=== PATIENT | female | born 1980 | race Caucasian/White ===

== ENCOUNTER 2017-04-03 09:40 | Inpatient (IN) | payer OTHER, MEDICAID ==
[2017-04-03] VITALS (7 sets, daily range): BP systolic 129–140; BP diastolic 70–87; PULSE 80–94; RESP 18; TEMP 97.6–98; O2SAT 99–100
[~2017-04-03] VITALS: Ht 152.4 cm; Wt 74.0 kg
[2017-04-03] MEDS ORDERED: IOHEXOL 350 MG/ML 10 ML VIAL (for RAD DIAG) IVCONTRAST ONE (09:41)
[2017-04-03] MEDS ORDERED: ceFAZolin 2 GM PREMIX 50 ML ONE (09:43)
[2017-04-03] MEDS ORDERED: DIPHTH/TETANUS/ACEL PERTUSSIS (BOOSTER) 0.5 ML VIAL/PFS IM ONE (09:43)
[2017-04-03] MEDS ORDERED: MORPHINE SULFATE 8 MG/ML INJ ONE (09:45)
[2017-04-03] MEDS ORDERED: ONDANSETRON HCL 4 MG/2 ML VIAL ONE (09:45)
[2017-04-03] MEDS ORDERED: SODIUM CHLOR 0.9% 1000 ML INJ 1,000 ML IV SCH (10:00)
[2017-04-03] MEDS ORDERED: SODIUM CHLORIDE 0.9% FLUSH 10 ML FLUSH IV FLUSH PRN (10:00)
[2017-04-03] MEDS ORDERED: Post-op Orders (for Pharmacy) MISC XX ONE (10:00)
[2017-04-03] MEDS ORDERED: NALOXONE HCL 0.4 MG/ML AMP IV PRN (10:00)
[2017-04-03 10:07] LABS: AUTOMATED NEUTROPHIL # 13.7 TH/MM3 (1.8-7.7); BASOPHIL % 0.2 % (0.0-2.0); EOSINOPHIL # 0.4 TH/MM3 (0-0.4); EOSINOPHIL % 1.8 % (0.0-4.0); HEMATOCRIT 38.3 % (35.0-46.0); HEMO FLAGS DIFF FINAL; I-STAT POTASSIUM 3.7 MMOL/L (3.5-4.9); LYMPH % 22.1 % (9.0-44.0); LYMPHOCYTE # 4.3 TH/MM3 (1.0-4.8); MEAN CELL VOLUME 90.8 FL (80.0-100.0); MEAN CORPUSCULAR HEMOGLOBIN 30.1 PG (27.0-34.0); MEAN CORPUSCULAR HGB CONC 33.1 % (32.0-36.0); MONO % 5.9 % (0.0-8.0); PLATELET COUNT 350 TH/MM3 (150-450); RED BLOOD COUNT 4.22 MIL/MM3 (4.00-5.30); RED CELL DISTRIBUTION WIDTH 12.9 % (11.6-17.2); WHITE BLOOD COUNT 19.6 TH/MM3 (4.0-11.0)
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
[2017-04-03 10:11] LABS: APTT (PATIENT) 22.8 SEC (24.3-30.1); INTERNATIONAL NORMALIZED RATIO 0.9 RATIO
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
[2017-04-03] MEDS: MORPHINE SULFATE 4 MG/ML INJ IV PRN ×2 (10:40→19:31)
[2017-04-03] MEDS: ONDANSETRON HCL 4 MG/2 ML VIAL IV PRN (10:41)
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
[2017-04-03] MEDS: PANTOPRAZOLE SODIUM 40 MG VIAL IV SCH (12:00)
[2017-04-03] MEDS ORDERED: LIDOCAINE HCL 1% 50 ML VIAL INFIL ONE (13:15)
[2017-04-03] MEDS ORDERED: LIDOCAINE 2%/EPINEPHrine 1:100,000 50ML MDV ONE (15:03)
[2017-04-03] MEDS ORDERED: HYDROmorphone HCL PF 1 MG/ML VIAL IV PUSH ONE (15:45)
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
[2017-04-03] MEDS: DOCUSATE SODIUM 100 MG CAP PO SCH (19:30)
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
[2017-04-03] MEDS ORDERED: oxyCODONE/ACETAMINOPHEN 5 MG/325 MG TAB PO PRN (21:00)
[2017-04-03] MEDS: BACITRACIN TOP OINT 15 GM TUBE TOPICAL SCH (21:01)
[2017-04-03] MEDS: SODIUM CHLORIDE 0.9% FLUSH 10 ML FLUSH IV FLUSH SCH (21:02)
[2017-04-03] MEDS: HYDROmorphone HCL PF 1 MG/ML VIAL IV PRN (21:02)
[2017-04-04] VITALS (7 sets, daily range): BP systolic 109–140; BP diastolic 59–72; PULSE 80–98; RESP 16–18; TEMP 97.7–99.1; O2SAT 97–100
[2017-04-04] MEDS: HYDROmorphone HCL PF 1 MG/ML VIAL IV PRN ×7 (00:03→18:42)
[2017-04-04 06:00] LABS: AUTOMATED NEUTROPHIL # 12.2 TH/MM3 (1.8-7.7); BASOPHIL % 0.2 % (0.0-2.0); EOSINOPHIL # 0.1 TH/MM3 (0-0.4); EOSINOPHIL % 0.8 % (0.0-4.0); HEMATOCRIT 34.1 % (35.0-46.0); HEMO FLAGS DIFF FINAL; LYMPH % 11.9 % (9.0-44.0); LYMPHOCYTE # 1.9 TH/MM3 (1.0-4.8); MEAN CELL VOLUME 93.4 FL (80.0-100.0); MEAN CORPUSCULAR HEMOGLOBIN 29.9 PG (27.0-34.0); MONO % 9.8 % (0.0-8.0); NEUT % 77.3 % (16.0-70.0); PLATELET COUNT 261 TH/MM3 (150-450); RED BLOOD COUNT 3.64 MIL/MM3 (4.00-5.30); RED CELL DISTRIBUTION WIDTH 12.7 % (11.6-17.2); WHITE BLOOD COUNT 15.8 TH/MM3 (4.0-11.0)
[2017-04-04 06:27] LABS: BICARBONATE 20.9 MEQ/L (21.0-32.0); POTASSIUM 3.7 MEQ/L (3.5-5.1)
[2017-04-04] MEDS: BACITRACIN TOP OINT 15 GM TUBE TOPICAL SCH (09:00)
[2017-04-04] MEDS: DOCUSATE SODIUM 100 MG CAP PO SCH (09:00)
[2017-04-04] MEDS: SODIUM CHLORIDE 0.9% FLUSH 10 ML FLUSH IV FLUSH SCH (09:00)
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
[2017-04-04] MEDS: ONDANSETRON HCL 4 MG/2 ML VIAL IV PRN (09:53)
[2017-04-04] MEDS ORDERED: OXYC1TAB63 PO (10:07)
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
[2017-04-04] MEDS ORDERED: DOCU1CAP39 PO (11:48)
[2017-04-04] MEDS ORDERED: MAGN400S PO (11:48)
[2017-04-04] MEDS: PANTOPRAZOLE SODIUM 40 MG VIAL IV SCH (12:00)
[2017-04-04] MEDS ORDERED: CEPH-460 PO (14:43)
--- NOTE | 2017-04-04 14:49 | HHI.PR ---
Subjective Remarks p t seems more comfortable today, moving all of her fingers Objective Vital Signs Date Time Temp Pulse Resp B/P (MAP) Pulse Ox O2 Delivery O2 Flow Rate FiO2 04/04/17 12:00 99.1 81 18 109/59 (76) 99 04/04/17 09:31 100 04/04/17 08:00 97.7 81 18 140/71 (94) 99 04/04/17 04:00 99.0 98 17 137/72 (93) 97 04/04/17 01:22 97 04/04/17 00:00 98.0 97 16 112/65 (81) 97 04/03/17 19:00 98.0 82 18 132/77 (95) 100 04/03/17 18:20 97.6 87 18 133/70 (91) 100 04/03/17 17:31 04/03/17 17:00 90 18 129/80 (96) 99 Room Air 04/03/17 15:00 92 18 140/85 (103) 99 Room Air I/O 04/03/17 04/03/17 04/03/17 04/04/17 04/04/17 04/04/17 07:00 15:00 23:00 07:00 15:00 23:00 Intake Total 480 ml 300 ml 0 ml Balance 480 ml 300 ml 0 ml Intake Oral 480 ml 300 ml IV Total 0 ml # Voids 3 4 # Bowel Movements 0 0 Result Diagram: 04/04/17 0535 04/04/17 0535 Objective Remarks all finger and hand wounds closed, clean; no bleeding CR<2 seconds in all fingertips all musculotendinous units intact moving all fingers and both hands, which are soft AA x O x 3 she is very pleasant sitting comfortably in her bed Assessment and Plan Problem List: (1) Laceration of finger of left hand ICD Codes: S61.219A - Laceration without foreign body of unspecified finger without damage to nail, initial encounter Plan: will clean and dry hands of dried blood today with nurse's help xeroform to raw wounds and two exposed nailbeds stack splints to right middle finger and left thumb abx x 7 days p.o. f/u in office (2) Laceration of finger of right hand with complication ICD Codes: S61.411A - Laceration without foreign body of right hand, initial encounter (3) Laceration of finger of left hand with complication ICD Codes: S61.412A - Laceration without foreign body of left hand, initial encounter (4) Finger fracture, right ICD Codes: S62.609A - Fracture of unspecified phalanx of unspecified finger, initial encounter for closed fracture Status: Acute Problem Qualifiers (1) Finger fracture, right: Qualified Codes: S62.632B - Displaced fracture of distal phalanx of right middle finger, initial encounter for open fracture Alfred Sullivan III, MD Apr 04, 2017 14:49
[2017-04-04] MEDS ORDERED: MAGNESIUM HYDROXIDE SUSP 30 ML CUP PO SCH (21:00)
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
== END 2017-04-04 18:56 | disposition home or self-care (01) | DRG 581 ==
LOC: NEPI 09:40 → NEDA 10:58 → EDBD 10:58 → N06A 18:02
PROVIDERS: ADMIT Surgery; ATTEND Surgery
PROC: 0JQ10ZZ Repair Face Subcutaneous Tissue and Fascia, Open Approach (ICD-10-PCS; principal; 2017-04-03)
DX: S01.81XA Laceration without foreign body of other part of head, initial encounter (principal); K59.00 Constipation, unspecified; S62.632A Displaced fracture of distal phalanx of right middle finger, initial encounter for closed fracture; S61.412A Laceration without foreign body of left hand, initial encounter; S61.011A Laceration without foreign body of right thumb without damage to nail, initial encounter; S40.011A Contusion of right shoulder, initial encounter; S61.212A Laceration without foreign body of right middle finger without damage to nail, initial encounter; V48.5XXA Car driver injured in noncollision transport accident in traffic accident, initial encounter; Y92.9 Unspecified place or not applicable
CPT/HCPCS: 12002; 70450; 70486; 71010; 71260; 72125; 72170; 73130; 73221; 73551; 74177; 80048; 82435; 82565; 82947; 84132; 84295; 84520; 85025; 85610; 85730; 86850; 86900; 86901; 90471; 90715; 96374; 96375; 99291; G0390; J0690; J1170; J2270; J2405; J3010; Q9967